=== PATIENT | male | born 1990 | race Caucasian/White ===

== ENCOUNTER 2020-08-28 18:09 | Emergency (ER) | payer BC, SELFPAY ==
[2020-08-28 18:12] VITALS: BP 139/82; PULSE 71; RESP 16; TEMP 36.7; O2SAT 96
[2020-08-28] MEDS: Tetracaine 0.5% 4 ML BTL (18:15)
[2020-08-28] MEDS: Erythromycin Ophth Oint 3.5 GM TUBE OP (18:15)
[2020-08-28] MEDS: Fluorescein STRIPS 100/BOX 1 MG OP (18:15)
--- NOTE | 2020-08-28 18:38 | W.ED.GENAD ---
Discharge Plan Disposition Patient Disposition: HOME Condition: Stable Discharge Details Clinical Impression: Abrasion of left cornea Primary Care Provider: Ethan Wyatt ED Provider: Santiago Long Home Meds and New Rx's Prescriptions: No Action No Known Home Meds RF: 0 Discharge Instructions Instructions: Erythromycin (Into the eye), Corneal Abrasion (ED) Additional Instructions: Please take ibuprofen over the counter. Take 600mg by mouth every 6 hours as needed for pain. Please contact your [facility] healthcare network pricing consultant arrange follow-up for early next week. Return to the ER for any worsening or new concerning symptoms. Referrals: [facility] [Outside] Medical Decision Making 29-year-old male here with left eye corneal abrasion. No visual changes. Pain completely resolved with application of tetracaine. Plan to treat with erythromycin ointment. Initial dose provided. Patient encouraged to follow-up with director of category management. Referral to [facility] for early next week. Patient was encouraged to return immediately for any worsening or new concerning symptoms. Tetanus up-to-date 2015. HPI General Mode of arrival: ambulatory. Date/Time Provider Initiated Documentation: 08/28/20 18:16. Limitations to Documentation: no limitations. Information obtained by: patient. HPI Narrative: 29-year-old male here with left eye injury. Patient notes he was spreading some mulch this morning and the wind blew and a piece of mulch hit him in the eye. He is noticed increasing eye pain over the course of the day. Pain moderate. Feels uncomfortable especially when blinking. No visual changes. Related Data Home Medications Medication Instructions Recorded Confirmed Unknown [No Known Home Meds] 08/28/20 08/28/20 Allergies Allergy/AdvReac Type Severity Reaction Status Date / Time loratadine [From Claritin] AdvReac Intermediate Unverified 08/28/20 18:16 General Stated Complaint: EyeProblem MOISÉS: 3 Review of Systems Eyes Eyes: Reports as per HPI FOR[facility]LY [facility], [facility] Social History Smoking/Tobacco Use Status: Never Smoking risk assessment performed?: Yes Alcohol Intake: current Alcohol Intake frequency: a few times a month Drug use: Never Do you feel safe at home: Yes Do you feel safe in your relationship?: Yes Exam Const General: cooperative and uncomfortable Orientation: alert Limitations: altered mental status Eyes Visual Saldivar: normal visual saldivar by confrontation Alignment and Position: alignment normal Periorbital: periorbital findings normal Eyelids: eyelids normal Conjunctivae: conjunctivae normal Cornea: corneas abnormal on the left fluorescein used and abrasion curved and at the following clock position (1) and fluorescein used Pupils: PERRL EOM: EOM intact bilaterally Other: lids everted and no foreign body Course Vital Signs Vital signs: Vital Signs Temperature 36.7 C 08/28/20 18:12 Pulse 71 08/28/20 18:12 Respiratory Rate 16 08/28/20 18:12 Blood Pressure 139/82 08/28/20 18:12 Pulse Oximetry 96 08/28/20 18:12 Temperature 36.7 C 08/28/20 18:12 Temperature Source Skin 08/28/20 18:12 Pulse 71 08/28/20 18:12 Respiratory Rate 16 08/28/20 18:12 Respiratory Effort 08/28/20 18:17 Blood Pressure 139/82 08/28/20 18:12 Blood Pressure Position Sitting 08/28/20 18:12 Pulse Oximetry 96 08/28/20 18:12 Oxygen Delivery Method Room Air 08/28/20 18:12 Oxygen Flow Rate 0 08/28/20 18:12 Pain Level 8 08/28/20 18:12
[2020-08-28] MEDS: Balanced Salt Solution 15 ML BTL OP (18:43)
--- NOTE | 2020-08-28 18:43 | NUR.NOTE ---
Nursing Note: Patient placed on care management list for f/u with [facility].
== END 2020-08-28 18:55 | disposition home or self-care (01) ==
PROVIDERS: Emergency Provider Student in an Organized Health Care Education/Training Program; PCP Pediatrics
DX: S05.02XA Injury of conjunctiva and corneal abrasion without foreign body, left eye, initial encounter (principal); W20.8XXA Other cause of strike by thrown, projected or falling object, initial encounter
CPT/HCPCS: 99283